=== PATIENT | female | born 1995 | race Two or more races ===

== ENCOUNTER 2018-11-20 06:58 | Emergency (ER) | payer OTHER ==
--- NOTE | 2018-11-20 07:06 | ER Report ---
History and Physical Time Seen By MD: 07:06 HPI/LORI CHIEF COMPLAINT: Chest pain HISTORY OF PRESENT ILLNESS: Patient is a 23-year-old otherwise healthy female who presents to the emergency department with chest pain that lasted for approximately 20 minutes and started around 5:30 this morning. She states that she had been up all night stressing over an assignment for school. She states that she felt a scratching or pressure type sensation substernally and had associated shortness of breath which came on spontaneously and resolved spontaneously after about 20 minutes. She currently denies feeling these symptoms although she states she feels fatigued. He has never had similar symptoms in the past. She denies any significant past medical history. REVIEW OF SYSTEMS: Constitutional: No fever, no chills. Eyes: No discharge. ENT: No sore throat. Cardiovascular: No chest pain, no palpitations. Respiratory: No cough, no shortness of breath. Gastrointestinal: No abdominal pain, no vomiting. Genitourinary: No hematuria. Musculoskeletal: No back pain. Skin: No rashes. Neurological: No headache. Home Meds No Active Prescriptions or Reported Meds Past Medical/Surgical History Denies any significant past medical history Constitutional Vital Sign - Last 24 Hours 11/20/18 11/20/18 11/20/18 11/20/18 07:05 07:06 07:30 08:00 Temp 98.8 Pulse 78 71 74 Resp 16 17 28 B/P (MAP) 132/82 132/82 (99) 122/84 (97) Pulse Ox 98 94 100 O2 Delivery Room Air Physical Exam General/Constitutional: Patient is awake, alert, nontoxic and in no acute respiratory distress. Head: Normocephalic and atraumatic. Eyes: Conjunctival clear, . Sclera are clear and anicteric. Neck: Supple, no adenopathy. Cardiovascular: Heart is regular rate and rhythm without audible murmurs, rubs or gallops. Pulmonary: Lungs are clear to auscultation bilaterally. There are no wheezes, rales, or rhonchi. Chest rise is symmetrical Abdomen: Soft, nontender, no guarding or peritoneal signs. Extremities: No gross deformities, No peripheral cyanosis. Able to move all 4 extremities. Neuro: Alert and oriented X3, Skin: No rashes, skin is warm dry and well perfused. Medical Decision Making Data Points Result Diagram: 11/20/18 0712 11/20/18 0712 Laboratory Hematology Test 11/20/18 07:12 Red Blood Count 4.85 M/uL (4.17-5.56) Mean Corpuscular Volume 92.3 fL (80.0-96.0) Mean Corpuscular Hemoglobin 31.4 pg (26.0-33.0) Mean Corpuscular Hemoglobin Concent 34.0 g/dL (32.0-36.0) Red Cell Distribution Width 13.3 % (11.5-14.5) Mean Platelet Volume 9.0 fL (7.2-11.1) Neutrophils (%) (Auto) 74.4 % (39.4-72.5) Lymphocytes (%) (Auto) 18.4 % (17.6-49.6) Monocytes (%) (Auto) 6.1 % (4.1-12.4) Eosinophils (%) (Auto) 0.7 % (0.4-6.7) Basophils (%) (Auto) 0.4 % (0.3-1.4) Nucleated RBC Relative Count (auto) 0.0 /100WBC Neutrophils # (Auto) 4.6 K/uL (2.0-7.4) Lymphocytes # (Auto) 1.1 K/uL (1.3-3.6) Monocytes # (Auto) 0.4 K/uL (0.3-1.0) Eosinophils # (Auto) 0.0 K/uL (0.0-0.5) Basophils # (Auto) 0.0 K/uL (0.0-0.1) Nucleated RBC Absolute Count (auto) 0.00 K/uL Sodium Level 139 mmol/L (137-145) Potassium Level 3.6 mmol/L (3.5-5.0) Chloride Level 104 mmol/L (98-107) Carbon Dioxide Level 23 mmol/L (22-31) Blood Urea Nitrogen 9 mg/dl (7-18) Creatinine 0.60 mg/dl (0.52-1.04) Glomerular Filtration Rate Calc > 60.0 Random Glucose 104 mg/dl (75-110) Calcium Level 9.7 mg/dl (8.4-10.2) Total Bilirubin 0.8 mg/dl (0.2-1.3) Aspartate Amino Transf (AST/SGOT) 18 U/L (0-35) Alanine Aminotransferase (ALT/SGPT) 12 U/L (0-56) Alkaline Phosphatase 70 U/L (0-126) Troponin I < 0.012 ng/ml Total Protein 8.8 g/dl (6.3-8.2) Albumin 5.0 g/dl (3.5-5.0) Chemistry Test 11/20/18 07:12 White Blood Count 6.1 k/uL (4.5-11.0) Red Blood Count 4.85 M/uL (4.17-5.56) Hemoglobin 15.2 g/dL (12.0-16.0) Hematocrit 44.8 % (34.0-47.0) Mean Corpuscular Volume 92.3 fL (80.0-96.0) Mean Corpuscular Hemoglobin 31.4 pg (26.0-33.0) Mean Corpuscular Hemoglobin Concent 34.0 g/dL (32.0-36.0) Red Cell Distribution Width 13.3 % (11.5-14.5) Platelet Count 210 K/uL (150-450) Mean Platelet Volume 9.0 fL (7.2-11.1) Neutrophils (%) (Auto) 74.4 % (39.4-72.5) Lymphocytes (%) (Auto) 18.4 % (17.6-49.6) Monocytes (%) (Auto) 6.1 % (4.1-12.4) Eosinophils (%) (Auto) 0.7 % (0.4-6.7) Basophils (%) (Auto) 0.4 % (0.3-1.4) Nucleated RBC Relative Count (auto) 0.0 /100WBC Neutrophils # (Auto) 4.6 K/uL (2.0-7.4) Lymphocytes # (Auto) 1.1 K/uL (1.3-3.6) Monocytes # (Auto) 0.4 K/uL (0.3-1.0) Eosinophils # (Auto) 0.0 K/uL (0.0-0.5) Basophils # (Auto) 0.0 K/uL (0.0-0.1) Nucleated RBC Absolute Count (auto) 0.00 K/uL Glomerular Filtration Rate Calc > 60.0 Calcium Level 9.7 mg/dl (8.4-10.2) Total Bilirubin 0.8 mg/dl (0.2-1.3) Aspartate Amino Transf (AST/SGOT) 18 U/L (0-35) Alanine Aminotransferase (ALT/SGPT) 12 U/L (0-56) Alkaline Phosphatase 70 U/L (0-126) Troponin I < 0.012 ng/ml Total Protein 8.8 g/dl (6.3-8.2) Albumin 5.0 g/dl (3.5-5.0) EKG/Imaging EKG Interpretation EKG shows normal sinus rhythm with a ventricular rate of 77 bpm. Monitor Interpretation: Normal Sinus Rhythm Imaging FACILITY: [facility] - [place] PATIENT NAME: Anna Altman : 1995 MR: [id number] V: [id number] EXAM DATE: [id number] ORDERING PHYSICIAN: NANCY PENNINGTON TECHNOLOGIST: Location: [facility] - [place] Patient: Anna Altman : 1995 Visit/Account:[id number] Date of Sevice: 11/20/2018 CHEST PA LAT Additional pertinent History: Chest pain COMPARISON STUDIES: none FINDINGS: Support lines and catheters: None Lungs and Pleura: Lung man well expanded with no infiltrates or consolidations. No parenchymal mass lesions are seen. There are no effusions. Calcified granuloma in the right hilum Heart and vasculature: Negative. Renu and Mediastinum: Negative. Bones and Chest wall: Mild 8 degrees scoliotic curvature of the thoracic spine maximally convex to the left at the T5 Upper Abdomen: Negative. IMPRESSION: 1. Negative chest for acute cardiopulmonary disease Report Dictated By: Jean-Pierre Diamond MD at 11/20/2018 7:40 AM Report E-Signed By: Jean-Pierre Diamond MD at 11/20/2018 7:48 AM WSN:[id number] ED Course/Re-evaluation ED Course 11/20/2018 7:15:15 am plan at this time will be to perform cardiac workup with single troponin. We'll obtain EKG. Doubt that this represents acute coronary syndrome more likely a stress-induced perhaps esophageal spasm or anxiety. Decision to Disposition Date: Nov 20, 2018 Decision to Disposition Time: 07:57 Depart Departure Latest Vital Signs Vital Signs Date Time Temp Pulse Resp B/P (MAP) Pulse Ox O2 Delivery O2 Flow Rate FiO2 11/20/18 08:00 74 28 100 11/20/18 07:30 122/84 (97) 11/20/18 07:05 98.8 Room Air Impression: Primary Impression: Non-cardiac chest pain Condition: Improved Disposition: HOME OR SELF-CARE New Scripts No Active Prescriptions or Reported Meds Departure Forms: ER Transition Record, Medications Reconciliation, Off Work/School Form, School or Work Release?: School Number of days to be released: 1 Patient Portal Information Patient Instructions: Noncardiac Chest Pain (ED) Additional Instructions: Recommend follow-up with her primary physician in [place] in the next few weeks to discuss stress management. NANCY PENNINGTON MD Nov 20, 2018 07:06
--- NOTE | 2018-11-20 07:22 | EKG ---
FACILITY: [facility] - [place] PATIENT NAME: MARCUS MOORE : [id number] MR: [id number] V: [id number] EXAM DATE: ORDERING PHYSICIAN: NANCY PENNINGTON TECHNOLOGIST: Test Reason : chest pain Blood Pressure : / mmHG Vent. Rate : 077 BPM Atrial Rate : 077 BPM P-R Int : 170 ms QRS Dur : 098 ms QT Int : 410 ms P-R-T Axes : 066 108 049 degrees QTc Int : 463 ms Normal sinus rhythm with sinus arrhythmia Normal ECG No previous ECGs available Confirmed by ALFRED HANKINS ([id number]) on 11/20/2018 9:27:25 AM Referred By: Confirmed By:ALFRED HANKINS
[2018-11-20 07:28] LABS: PLATELET COUNT, AUTOMATED 210 K/uL (150-450)
[2018-11-20 07:30] VITALS: BP 122/84
--- NOTE | 2018-11-20 07:52 | RADIOLOGY IMAGING REPORT ---
FACILITY: [facility] [place] PATIENT NAME: Anna Altman : 1995 MR: [id number] V: [id number] EXAM DATE: ORDERING PHYSICIAN: NANCY PENNINGTON TECHNOLOGIST: Location: [facility] - [place] Patient: Anna Altman : 1995 Visit/Account:[id number] Date of Sevice: 11/20/2018 CHEST PA LAT Additional pertinent History: Chest pain COMPARISON STUDIES: none FINDINGS: Support lines and catheters: None Lungs and Pleura: Lung man well expanded with no infiltrates or consolidations. No parenchymal ma ss lesions are seen. There are no effusions. Calcified granuloma in the right hilum Heart and vasculature: Negative. Renu and Mediastinum: Negative. Bones and Chest wall: Mild 8 degrees scoliotic curvature of the thoracic spine maximally convex to t he left at the T5 Upper Abdomen: Negative. IMPRESSION: 1. Negative chest for acute cardiopulmonary disease Report Dictated By: Jean-Pierre Diamond MD at 11/20/2018 7:40 AM Report E-Signed By: Jean-Pierre Diamond MD at 11/20/2018 7:48 AM WSN:[id number]
== END 2018-11-20 08:22 | disposition home or self-care (01) ==
LOC: ER 07:08
DX: R07.89 Other chest pain (principal)
CPT/HCPCS: 71046; 82040; 82247; 82310; 82374; 82435; 82565; 82947; 84075; 84132; 84155; 84295; 84450; 84460; 84484; 84520; 85025; 93005; 99284